=== PATIENT | female | born 1980 | race Caucasian/White ===

== ENCOUNTER 2019-10-03 20:54 | Emergency (ER) | payer OTHER ==
[~2019-10-03] VITALS: Ht 154.9 cm; Wt 57.2 kg
[2019-10-04] MEDS ORDERED: INTESTINEX680 M1 PO (04:31)
[2019-10-04] MEDS ORDERED: ZOFRAN4 MG PO (04:31)
[2019-10-04] MEDS ORDERED: PEPCID40 MG PO (04:31)
== END 2019-10-04 04:39 ==
LOC: ER 20:54
DX: R19.7 Diarrhea, unspecified (principal)